=== PATIENT | female | born 1985 | race African-American/Black ===

== ENCOUNTER → 2018-04-28 | Emergency (ER) | payer MEDICAID ==
[~2018-04-28] VITALS: Ht 167.6 cm; Wt 87.1 kg
[~2018-04-28] MED LIST: ACYCLOVIR800 MG ORAL; AUGMENTIN 875-1 EAC1 ORAL; CEPHALEXIN500 MG ORAL; FERROUS SULFAT325 MG ORAL; NIZORAL 2% C1 APPLIC TOPIC; NKM; PROMETHAZINE-D118 ML ORAL; ROBAXIN-750750 MG PO; ZOFRAN4 M1 ORAL
[2018-04-28 15:38] VITALS: BP 132/82
--- NOTE | 2018-04-28 16:55 | Emergency Room Report ---
History of Present Illness General Chief Complaint: Pain Source: Patient, Medical Record Present Illness HPI 33-year-old female presents to the emergency department complaining of 9 out of 10 in severity painful but also moderately itchy rash to the right posterior scalp 4 days. Patient also reports swelling of her lymph nodes. Patient denies fevers or chills she reports she did have chickenpox when she was younger. Patient also reports exacerbation of her chronic back pain and is requesting referral to chronic pain management. Patient denies new trauma or fall. Pt. denies fevers, chills or swollen tender lymph nodes. Denies lesions/ rashes elsewhere on the body. Denies new medications or body washes or creams. Denies swelling of the lips, tongue , throat or airway. Denies wheezing, or shortness of breath. Denies recent travel, recent illness or ill contacts. denies blisters, oral lesions, or sloughing of the skin. She denies saddle anesthesia, recent spinal procedures or history of cancer. Allergies: Coded Allergies: No Known Allergies (Unverified , 06/08/16) Patient History Past Medical History: see triage record Past Surgical History: none Pertinent Family History: none Last Menstrual Period: 03/21/18 Now: No Immunizations: UTD Reviewed Nursing Documentation: PMH: Agreed; PSxH: Agreed Nursing Documentation-PMH Past Medical History: No History, Except For Hx Neurological Problems: No - chronic back pain Review of Systems All Other Systems: negative except mentioned in HPI Physical Exam Vital Signs Date Time Temp Pulse Resp B/P (MAP) Pulse Ox O2 Delivery O2 Flow Rate FiO2 04/28/18 15:34 98.6 80 18 132/82 100 Room Air Sp02 EP Interpretation: reviewed, normal General Appearance: no apparent distress, alert, GCS 15, non-toxic Head: normocephalic, atraumatic Eyes: bilateral eye normal inspection, bilateral eye PERRL ENT: hearing grossly normal, normal pharynx, no angioedema, normal voice, other - no swelling of the lips or tongue. anterior cervical LAD noted. NO facial or ear lesions. Neck: full range of motion, no meningismus, no bony tend Respiratory: chest non-tender, lungs clear, normal breath sounds, speaking full sentences Cardiovascular #1: regular rate, rhythm, no edema Musculoskeletal: back normal, gait/station normal, normal range of motion, non- tender Neurologic: alert, oriented x3, responsive, motor strength/tone normal, sensory intact, speech normal, grossly normal Psychiatric: judgement/insight normal Skin: normal color, no rash, warm/dry, well hydrated, rash - localized group of vessicles most of wich crusted over, no surrounding erythema, some alopecia present at site of rash. no blisters. no pustules. sensitive to light touch. Lymphatic: other - anterior cervical LAD bilat. Medical Decision Making PA Attestation Dr. Zamora is my supervising Physician whom patient management has been discussed with. Diagnostic Impression: Primary Impression: Rash and nonspecific skin eruption Additional Impression: Back pain Qualified Codes: M54.5 - Low back pain; G89.29 - Other chronic pain ER Course 33-year-old female presents to the emergency department complaining of 9 out of 10 in severity painful but also moderately itchy rash to the right posterior scalp 4 days. Patient also reports swelling of her lymph nodes. Patient denies fevers or chills she reports she did have chickenpox when she was younger. Patient also reports exacerbation of her chronic back pain and is requesting referral to chronic pain management. Patient denies new trauma or fall. Pt. denies fevers, chills or swollen tender lymph nodes. Denies lesions/ rashes elsewhere on the body. Denies new medications or body washes or creams. Denies swelling of the lips, tongue , throat or airway. Denies wheezing, or shortness of breath. Denies recent travel, recent illness or ill contacts. denies blisters, oral lesions, or sloughing of the skin. She denies saddle anesthesia, recent spinal procedures or history of cancer. Ddx considered but are not limited to cellulitis, scabies, shingles, varicella, dermatitis, urticaria, eczema, tinea, viral exanthem, SJS, tinea, pharyngitis, Kane, opportunistic infection, muscle strain, spinal chord injury or epidural abscess just to name a few. Vital signs: are WNL, pt. is afebrile H&PE are most consistent with possible shingles with secondary bacterial infection. NO facial or ear lesions. Also exacerbation of chronic pain with no evidence of cauda equina. ORDERS: none required at this time, the diagnosis is clinical ED INTERVENTIONS: None required at this time. DISCHARGE: At this time pt. is stable for d/c to home. Will provide printed patient care instructions, and any necessary prescriptions. Care plan and follow up instructions have been discussed with the patient prior to discharge. Last Vital Signs Date Time Temp Pulse Resp B/P (MAP) Pulse Ox O2 Delivery O2 Flow Rate FiO2 04/28/18 15:38 98.6 80 18 132/82 100 Room Air Disposition: HOME, SELF-CARE Condition: Stable Scripts Ketoconazole (Ketoconazole) 15 Gm Cream..g. 1 APPLIC TOPIC BID, #15 GM Prov: Greta Martin 04/28/18 Cephalexin* (KEFLEX*) 500 Mg Capsule 500 MG ORAL EVERY 12 HOURS, #14 CAP 0 Refills Prov: Greta Martin 04/28/18 Acyclovir* (ZOVIRAX*) 800 Mg Tablet 800 MG ORAL FIVE TIMES A DAY for 7 Days, #35 TAB Prov: Greta Martin 04/28/18 Methocarbamol* (ROBAXIN-750*) 750 Mg Tablet 750 MG PO QID, #28 TAB 0 Refills Prov: Greta Martin 04/28/18 Patient Instructions: Back Pain, Adult, Uytu-lt-Nsoh, Rash, Nuos-ut-Ghro, Shingles, Afmc-bk-Abap Additional Instructions: Take medications as directed. Follow up with a Primary Care Provider in 3-5 days, even if your symptoms have resolved. --Please review list of primary care clinics, if you do not already have a primary care provider Return sooner to ED if new symptoms occur, or current symptoms become worse. Do not drink alcohol, drive, or operate heavy machinery while taking Robaxin ( Muscle Relaxers) as this may cause drowsiness. - Please note that this Emergency Department Report was dictated using [employer] architect technology software, occasionally this can lead to erroneous entry secondary to interpretation by the dictation equipment. Greta Martin Apr 28, 2018 16:55
[2018-04-28 17:09] VITALS: BP 125/78
== END | disposition home or self-care (01) ==
LOC: EMR 16:12
DX: R21 Rash and other nonspecific skin eruption (principal); G89.29 Other chronic pain; M54.5 Low back pain
CPT/HCPCS: 99283

== ENCOUNTER → 2020-08-09 | Emergency (ER) | payer MEDICAID ==
[~2020-08-09] VITALS: Ht 167.6 cm; Wt 101.6 kg
[~2020-08-09] MED LIST changes: +IBUPROFEN600 MG ORAL; +NITROFURANTOIN100 M2 ORAL; +NORCO 5-325 TA1 EACH ORAL; +PEPCID AC20 M2 PO; +PRENATAL COMPL1 EAC1 PO; +ceFAZolin sod 1 GM in NS 55 ML IVPB ONE
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
--- NOTE | 2020-08-09 20:43 | NUR ---
Consent to release medical information signed by patient faxed to [facility] [phone].
--- NOTE | 2020-08-09 20:57 | NUR ---
[employer] officers are here, talking to patient.
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
[2020-08-09 21:07] VITALS: BP 117/82
--- NOTE | 2020-08-09 21:23 | Diagnostic Imaging Report ---
EXAM: XR Chest, 1 View CLINICAL HISTORY: INJ TECHNIQUE: Frontal view of the chest. COMPARISON: No relevant prior studies available. FINDINGS: Lungs: Unremarkable. No consolidation. Pleural space: Unremarkable. No pneumothorax. Heart: Unremarkable. No cardiomegaly. Mediastinum: Unremarkable. Bones/joints: Unremarkable. IMPRESSION: No acute cardiopulmonary disease.
[2020-08-09 21:30] LABS: INR 0.9 (0.9-1.1)
[2020-08-09 21:31] LABS: ANION GAP 14 mmol/L (5-15); BLOOD UREA NITROGEN 10 mg/dL (7-18); CALCIUM 8.5 MG/DL (8.5-10.1); CARBON DIOXIDE 23 MMOL/L (21-32); CHLORIDE 109 MMOL/L (98-107); POTASSIUM 3.2 MMOL/L (3.5-5.1); SODIUM 146 MMOL/L (136-145)
[2020-08-09 21:34] LABS: ALANINE AMINOTRANSFERASE 25 U/L (12-78); ALBUMIN 3.6 G/DL (3.4-5.0); ALBUMIN/GLOBULIN RATIO 0.8 (1.0-2.7); ALKALINE PHOSPHATASE 83 U/L (46-116); ASPARTATE AMINO TRANSFERASE 32 U/L (15-37); BILIRUBIN,TOTAL 0.2 MG/DL (0.2-1.0)
[2020-08-09 21:36] LABS: HEMATOCRIT 26.7 % (37.0-47.0); HEMOGLOBIN 7.4 G/DL (12.0-16.0); MEAN CORPUSCULAR VOLUME 57 FL (80-99); PLATELET COUNT 433 K/UL (150-450); RED BLOOD COUNT 4.68 M/UL (4.20-5.40); RED CELL DISTRIBUTION WIDTH 17.7 % (11.6-14.8); WHITE BLOOD COUNT 7.1 K/UL (4.8-10.8)
[2020-08-09 21:37] LABS: BASOPHILS % (AUTO) 0.8 % (0.0-2.0); EOSINOPHILS % (AUTO) 0.5 % (0.0-3.0); LYMPHOCYTES % (AUTO) 25.6 % (20.0-45.0); NEUTROPHILS % (AUTO) 65.1 % (45.0-75.0)
--- NOTE | 2020-08-09 23:01 | NUR ---
her son number [id number]
--- NOTE | 2020-08-10 02:30 | NUR ---
ER DISCHARGE NOTE: Patient is cleared to be discharged per ERMD, pt is aox4, on room air, with stable vital signs.pt transfered to [facility] with ambulance. All d/c paper given to the paramedics . pt left the hospital with 18g iv on the right side.
[2020-08-10 02:39] VITALS: BP 118/78
== END | disposition other institution (70) ==
LOC: EMR 20:41
DX: S11.93XD Puncture wound without foreign body of unspecified part of neck, subsequent encounter (principal); R55 Syncope and collapse; D64.9 Anemia, unspecified; F10.929 Alcohol use, unspecified with intoxication, unspecified; I10 Essential (primary) hypertension; F15.10 Other stimulant abuse, uncomplicated; W34.00XD Accidental discharge from unspecified firearms or gun, subsequent encounter; Y90.8 Blood alcohol level of 240 mg/100 ml or more; Z53.20 Procedure and treatment not carried out because of patient's decision for unspecified reasons
CPT/HCPCS: 36415; 71045; 80053; 80307; 84484; 84703; 85025; 85610; 85730; 86850; 86900; 86901; 96365; G0480; J0690; Z7502; 86920; 99291